=== PATIENT | male | born 2005 | race Caucasian/White ===

== ENCOUNTER 2023-07-30 06:24 | Day surgery (SDC) | payer OTHER, SELFPAY ==
[2023-07-30] VITALS (11 sets, daily range): BP systolic 109–138; BP diastolic 59–78; BMI 24.6
[2023-07-30] MEDS: NORMOSOL-R 1000 IV (09:21)
== END 2023-07-30 13:20 | disposition home or self-care (01) ==
LOC: SDS 06:24
PROVIDERS: ATTENDING PHYSICIAN Otolaryngology
DX: J34.2 Deviated nasal septum (principal); J34.3 Hypertrophy of nasal turbinates
CPT/HCPCS: 30520; 30140; 88300